=== PATIENT | female | born 1955 | race Caucasian/White ===

== ENCOUNTER 2024-11-29 15:53 | Inpatient (IN) ==
--- NOTE | 2024-11-29 16:28 | Emergency Department Note ---
Impression & Plan Acute confusion, Brain TIA ED Provider Note HISTORY OF PRESENT ILLNESS: Patient is a 69-year-old female presenting with confusion. Patient reports that she "has been really overwhelmed recently." She reports that "I been feeling quite tired." Per clinical real estate manager provides significantly more valuable history at bedside. Reports that the patient was on a visit in the field with a client. Patient is a nurse for [employer] and reportedly kept calling the office every 5 to 10 minutes asking if she was clocked in for her shift. Clinical real estate manager reports that by the seventh time they started asking her questions and the patient was able to answer them appropriately. The clinical real estate manager and another nurse went out to visit the patient at her clients house because the client had called and expressed concern about the patient's confusion. Upon arrival, they report the patient required significant coaxing to do the basics of her job which is very abnormal for her. She was unable to answer any orientation questions appropriately. They report that she was her normal self yesterday. They report that she was amnestic to the events that occurred to the client throughout the day, and clinical real estate manager reports that they were significant events. Patient denies any recent changes to medications. She reports that she has not fallen or hit her head. Denies chiropractic manipulation of her neck. Denies any chest pain or shortness of breath. Denies any recent fevers or chills. Denies any dysuria or hematuria. ROS: as above PHYSICAL EXAM: Constitutional: Patient appears in no acute distress. HENT: Head: Normocephalic and atraumatic. Eyes: EOMI, PERRL Mouth/Throat: Mucous membranes moist. Neck: Trachea midline. Neck supple. Cardiovascular: Tachycardic with regular rhythm. No murmurs, rubs or gallops. Intact distal pulses. Pulmonary/Chest: No respiratory distress. Breath sounds clear and equal bilaterally. No wheezes or rales. Abdominal: Abdomen soft, no tenderness, rebound or guarding. Musculoskeletal: No edema, tenderness or deformity noted. Skin: Warm and dry. No rash, erythema, pallor or cyanosis Psychiatric: Appropriate mood and affect for situation. Neurological: Alert. CN II-XII grossly intact, moving all extremities equally and fully. MDM: - Vitals signs showed hypertension and tachycardia - History obtained via patient and patient's clinical real estate manager, given patient's confusion. History as above. - Chronic conditions affecting care: None - Differential diagnoses include, but are not limited to: UTI; pneumonia; viral syndrome; ACS; TIA; CVA; intracranial hemorrhage - Order placed for continuous cardiac monitoring. At this time, monitor showed rate of 77 bpm with normal sinus rhythm, per my interpretation. - External medical records reviewed. - EKG image interpreted by myself showed normal sinus rhythm. Rate 100 bpm. QT 346. No acute ischemic changes. - Laboratory workup interpreted by myself showed normal WBC; normal PT/INR; stable electrolytes; normal TSH; elevated troponin (28); negative alcohol - CXR image reviewed by myself negative for pneumonia, per my interpretation - UA negative for infection - UDS negative - CT head negative for acute intracranial pathology - CTA head/neck negative for acute pathology - Viral respiratory panel negative. - Repeat troponin slightly downtrending but still elevated at 24 - Patient is alert and oriented on assessment. Unclear etiology for her symptoms at this time. However, concern for potential TIA as a source for her symptoms. Will admit for further workup. - Discussion was had with clinical case manager about patient's case and need for admission - Hospitalist consulted for admission - Patient admitted to [facility]ist service for further evaluation and management. ASSESSMENT AND PLAN: Diagnosis: Confusion; brain TIA Plan: Admit Past Med/Surg History Problem List (Updated 11/29/24 @ 21:52 by Sameera Acevedo MD) Brain TIA (Acute) Acute confusion (Acute) Confusion Hand laceration (Acute) Hand laceration (Acute) Right otitis externa (Acute) Social History Smoking Status: Never smoker Tobacco Cessation Education Requested by Patient: No Hx Alcohol Use: No Hx Substance Use: No Preferred Language: [place] Communication Ability: Effective Liquid Flavor Compounder Required: No Beliefs That Will Affect Care: None Current Living Situation: Family Current Living Situation Comment: Lives w/ daughter Other Information That Helps Us Care for You: No Feels Safe at Home: Yes Safety Concerns: Feels Safe At This Time Assistive Devices: CPAP Assistive Devices Comment: Wears CPAP HS Allergies Allergies Allergy/AdvReac Type Severity Reaction Status Date / Time Penicillins Allergy Mild Unknown Unverified 11/29/24 20:27 cat dander Allergy Hives Unverified 11/29/24 20:27 Home Meds Home Medications Medication Instructions Recorded Confirmed No Known Home Medications 11/29/24 11/29/24 Results & Data (ED) Vital Signs Vital Signs - 24 hr 11/29/24 15:57 11/29/24 16:29 11/29/24 17:54 Temperature 36.8 C Temperature Source Temporal Artery Scan Pulse Rate - Lying Pulse Rate - Sitting Pulse Rate - Standing Pulse Rate 114 H Pulse Rate [Apical] 84 Pulse Rate [Exercises] Pulse Rate from SpO2 Sensor Respiratory Rate 18 19 Respiratory Rate [Exercises] Respiratory Effort / Characteristics Non-Labored Non-Labored Spontaneous Respiratory Depth Normal Normal Respiratory Pattern Regular Blood Pressure - Lying Blood Pressure - Sitting Blood Pressure- Standing Blood Pressure 153/81 H Blood Pressure [Right Arm] 135/73 Blood Pressure Mean 105 Blood Pressure Mean [Right Arm] 93 Pulse Oximetry 97 97 97 Pulse Oximetry [Exercises] Oxygen Delivery Method Room Air Room Air Room Air Sepsis Recent Fever Within 48 Hours No Sepsis New/Unexplained Change in Mental Status No Sepsis Action Taken by Nursing No Action Required 11/29/24 18:48 11/29/24 18:52 11/29/24 18:52 Temperature Temperature Source Pulse Rate - Lying Pulse Rate - Sitting Pulse Rate - Standing Pulse Rate Pulse Rate [Apical] Pulse Rate [Exercises] 89 Pulse Rate from SpO2 Sensor Respiratory Rate Respiratory Rate [Exercises] 19 Respiratory Effort / Characteristics Respiratory Depth Respiratory Pattern Blood Pressure - Lying Blood Pressure - Sitting Blood Pressure- Standing Blood Pressure 126/74 126/74 Blood Pressure [Right Arm] Blood Pressure Mean 105 105 Blood Pressure Mean [Right Arm] Pulse Oximetry Pulse Oximetry [Exercises] 97 Oxygen Delivery Method Room Air Sepsis Recent Fever Within 48 Hours Sepsis New/Unexplained Change in Mental Status Sepsis Action Taken by Nursing 11/29/24 18:52 11/29/24 18:52 11/29/24 18:53 Temperature Temperature Source Pulse Rate - Lying 70 Pulse Rate - Sitting 77 Pulse Rate - Standing 77 Pulse Rate Pulse Rate [Apical] Pulse Rate [Exercises] Pulse Rate from SpO2 Sensor Respiratory Rate Respiratory Rate [Exercises] Respiratory Effort / Characteristics Respiratory Depth Respiratory Pattern Blood Pressure - Lying 114/64 Blood Pressure - Sitting 121/67 Blood Pressure- Standing 126/74 Blood Pressure 126/74 126/74 Blood Pressure [Right Arm] Blood Pressure Mean 105 105 Blood Pressure Mean [Right Arm] Pulse Oximetry Pulse Oximetry [Exercises] Oxygen Delivery Method Sepsis Recent Fever Within 48 Hours Sepsis New/Unexplained Change in Mental Status Sepsis Action Taken by Nursing 11/29/24 18:54 11/29/24 18:58 11/29/24 19:00 Temperature Temperature Source Pulse Rate - Lying Pulse Rate - Sitting Pulse Rate - Standing Pulse Rate 87 85 86 Pulse Rate [Apical] Pulse Rate [Exercises] Pulse Rate from SpO2 Sensor 88 86 Respiratory Rate 15 13 Respiratory Rate [Exercises] Respiratory Effort / Characteristics Respiratory Depth Respiratory Pattern Blood Pressure - Lying Blood Pressure - Sitting Blood Pressure- Standing Blood Pressure Blood Pressure [Right Arm] Blood Pressure Mean Blood Pressure Mean [Right Arm] Pulse Oximetry 97 98 Pulse Oximetry [Exercises] Oxygen Delivery Method Sepsis Recent Fever Within 48 Hours Sepsis New/Unexplained Change in Mental Status Sepsis Action Taken by Nursing 11/29/24 19:00 11/29/24 19:00 11/29/24 19:12 Temperature Temperature Source Pulse Rate - Lying Pulse Rate - Sitting Pulse Rate - Standing Pulse Rate 83 Pulse Rate [Apical] Pulse Rate [Exercises] Pulse Rate from SpO2 Sensor 85 Respiratory Rate 17 Respiratory Rate [Exercises] Respiratory Effort / Characteristics Respiratory Depth Respiratory Pattern Blood Pressure - Lying Blood Pressure - Sitting Blood Pressure- Standing Blood Pressure 122/71 122/71 Blood Pressure [Right Arm] Blood Pressure Mean 80 80 Blood Pressure Mean [Right Arm] Pulse Oximetry 98 Pulse Oximetry [Exercises] Oxygen Delivery Method Sepsis Recent Fever Within 48 Hours Sepsis New/Unexplained Change in Mental Status Sepsis Action Taken by Nursing 11/29/24 19:21 11/29/24 19:30 11/29/24 20:00 Temperature Temperature Source Pulse Rate - Lying Pulse Rate - Sitting Pulse Rate - Standing Pulse Rate 87 81 Pulse Rate [Apical] Pulse Rate [Exercises] Pulse Rate from SpO2 Sensor 85 81 Respiratory Rate 17 14 Respiratory Rate [Exercises] Respiratory Effort / Characteristics Respiratory Depth Respiratory Pattern Blood Pressure - Lying Blood Pressure - Sitting Blood Pressure- Standing Blood Pressure 126/77 Blood Pressure [Right Arm] Blood Pressure Mean 88 Blood Pressure Mean [Right Arm] Pulse Oximetry 98 97 Pulse Oximetry [Exercises] Oxygen Delivery Method Sepsis Recent Fever Within 48 Hours Sepsis New/Unexplained Change in Mental Status Sepsis Action Taken by Nursing 11/29/24 20:15 11/29/24 20:33 11/29/24 20:45 Temperature Temperature Source Pulse Rate - Lying Pulse Rate - Sitting Pulse Rate - Standing Pulse Rate 77 78 89 Pulse Rate [Apical] Pulse Rate [Exercises] Pulse Rate from SpO2 Sensor 83 79 89 Respiratory Rate 20 17 23 Respiratory Rate [Exercises] Respiratory Effort / Characteristics Respiratory Depth Respiratory Pattern Blood Pressure - Lying Blood Pressure - Sitting Blood Pressure- Standing Blood Pressure Blood Pressure [Right Arm] Blood Pressure Mean Blood Pressure Mean [Right Arm] Pulse Oximetry 97 98 97 Pulse Oximetry [Exercises] Oxygen Delivery Method Sepsis Recent Fever Within 48 Hours Sepsis New/Unexplained Change in Mental Status Sepsis Action Taken by Nursing 11/29/24 21:00 11/29/24 21:00 11/29/24 21:00 Temperature Temperature Source Pulse Rate - Lying Pulse Rate - Sitting Pulse Rate - Standing Pulse Rate 79 Pulse Rate [Apical] Pulse Rate [Exercises] Pulse Rate from SpO2 Sensor 80 Respiratory Rate 14 Respiratory Rate [Exercises] Respiratory Effort / Characteristics Respiratory Depth Respiratory Pattern Blood Pressure - Lying Blood Pressure - Sitting Blood Pressure- Standing Blood Pressure 126/62 126/62 Blood Pressure [Right Arm] Blood Pressure Mean 85 85 Blood Pressure Mean [Right Arm] Pulse Oximetry 97 Pulse Oximetry [Exercises] Oxygen Delivery Method Sepsis Recent Fever Within 48 Hours Sepsis New/Unexplained Change in Mental Status Sepsis Action Taken by Nursing 11/29/24 21:00 Temperature Temperature Source Pulse Rate - Lying Pulse Rate - Sitting Pulse Rate - Standing Pulse Rate Pulse Rate [Apical] Pulse Rate [Exercises] Pulse Rate from SpO2 Sensor Respiratory Rate Respiratory Rate [Exercises] Respiratory Effort / Characteristics Respiratory Depth Respiratory Pattern Blood Pressure - Lying Blood Pressure - Sitting Blood Pressure- Standing Blood Pressure 126/62 Blood Pressure [Right Arm] Blood Pressure Mean 85 Blood Pressure Mean [Right Arm] Pulse Oximetry Pulse Oximetry [Exercises] Oxygen Delivery Method Sepsis Recent Fever Within 48 Hours Sepsis New/Unexplained Change in Mental Status Sepsis Action Taken by Nursing Laboratory Data 11/29/24 16:20 11/29/24 16:20 Lab Results 11/29/24 11/29/24 11/29/24 Range/Units 16:20 16:35 17:31 WBC 7.06 (4.8-10.8) K/ul RBC 4.98 (4.20-5.40) M/uL Hgb 15.5 (12.0-16.0) g/dl Hct 44.4 (37.0-47.0) % MCV 89.2 (80.0-100.0) fL MCH 31.1 (25.0-34.0) pg MCHC 34.9 (32.0-36.0) g/dL RDW Std Deviation 43.3 (36.4-46.3) fL RDW Coeff of Devi 13.2 (11.5-14.5) % Plt Count 230 (130-400) K/uL MPV 10.2 (9.4-12.4) fL Immature Gran % (Auto) 0.3 % Neut % (Auto) 81.9 % Lymph % (Auto) 13.0 % Dawson % (Auto) 4.4 % Eos % (Auto) 0.1 % Baso % (Auto) 0.3 % Neut # (Auto) 5.78 (1.40-6.50) K/uL Lymph # (Auto) 0.92 L (1.20-3.40) K/uL [place] # (Auto) 0.31 (0.11-0.59) K/uL Eos # (Auto) 0.01 (0.00-0.50) K/uL Baso # (Auto) 0.02 (0.00-0.20) K/uL Immature Gran # (Auto) 0.02 (0.01-0.20) K/uL PT 10.7 (9.0-12.0) Seconds INR 1.0 (0.9-1.1) Sodium 140 (136-145) mmol/L Potassium 3.6 (3.5-5.1) mmol/L Chloride 105 (98-107) mmol/L Carbon Dioxide 26 (21-32) mmol/L Anion Gap 9 (3-11) BUN 16 (6-23) mg/dl Creatinine 0.48 L (0.6-1.2) mg/dl Est Cr Clr Drug Dosing Not Reportable eGFR 102.47 BUN/Creatinine Ratio 33.3 H (10-20) Glucose 105 H (70-99(Fasting)) mg/dl Calcium 9.9 (8.6-10.3) mg/dl Magnesium 2.0 (1.7-2.4) mg/dl Total Bilirubin 0.4 (0.2-1.0) mg/dl AST 23 (13-39) U/L ALT 33 (7-52) U/L Alkaline Phosphatase 62 (34-104) U/L Troponin I High Sens 28.0 H (0-14) pg/ml Total Protein 7.6 (6.0-8.3) gm/dl Albumin 4.1 (3.4-5.0) gm/dl Globulin 3.5 (2.5-4.0) gm/dl Albumin/Globulin Ratio 1.2 (0.9-2) TSH 1.609 (0.300-4.500) uIu/ml Urine Color Yellow Urine Appearance Clear (Clear) Urine pH 7.0 (4.5-7.5) Ur Specific [place] 1.007 (1.000-1.030) Urine Protein Negative (Negative) Urine Glucose (UA) Negative (Negative) Urine Ketones 1+ H (Negative) Urine Blood Negative (Negative) Urine Nitrite Negative (Negative) Urine Bilirubin Negative (Negative) Urine Urobilinogen Negative (Negative) Ur Leukocyte Esterase Negative (Negative) Urine Comment Urine Opiates Screen Neg (Neg) Ur Methadone, Qual Neg (Neg) Urine Fentanyl Screen Neg (Neg) Urine Barbiturates Neg (Neg) Ur Phencyclidine (PCP) Neg (Neg) U Amphetamin/Meth Scrn Neg (Neg) MDMA (Ecstasy) Screen Neg (Neg) U Benzodiazepines Scrn Neg (Neg) Ur Cocaine Metabolite Neg (Neg) U Marijuana (THC) Screen Neg (Neg) Ethyl Alcohol mg/dL (<10.0) mg/dl Adenovirus (PCR) Not Detected (NotDetected) B. pertussis DNA (PCR) Not Detected (NotDetected) B.parapertussis DNA PCR Not Detected (NotDetected) C. pneumoniae DNA (PCR) Not Detected (NotDetected) Coronavirus OC43 (PCR) Not Detected (NotDetected) Coronavirus HKU1 (PCR) Not Detected (NotDetected) Coronavirus 229E (PCR) Not Detected (NotDetected) SARS-CoV-2 (PCR) Not Detected (NotDetected) Coronavirus NL63 (PCR) Not Detected (NotDetected) Human Metapneumovir PCR Not Detected (NotDetected) Influenza Type A (PCR) Not Detected (NotDetected) Influenza Type B (PCR) Not Detected (NotDetected) M. pneumoniae (PCR) Not Detected (NotDetected) Parainfluenza 1 (PCR) Not Detected (NotDetected) Parainfluenza 2 (PCR) Not Detected (NotDetected) Parainfluenza 3 (PCR) Not Detected (NotDetected) Parainfluenza 4 (PCR) Not Detected (NotDetected) RSV (PCR) Not Detected (NotDetected) Entero/Rhino (PCR) Not Detected (NotDetected) 11/29/24 Range/Units 17:55 WBC (4.8-10.8) K/ul RBC (4.20-5.40) M/uL Hgb (12.0-16.0) g/dl Hct (37.0-47.0) % MCV (80.0-100.0) fL MCH (25.0-34.0) pg MCHC (32.0-36.0) g/dL RDW Std Deviation (36.4-46.3) fL RDW Coeff of Devi (11.5-14.5) % Plt Count (130-400) K/uL MPV (9.4-12.4) fL Immature Gran % (Auto) % Neut % (Auto) % Lymph % (Auto) % [place] % (Auto) % Eos % (Auto) % Baso % (Auto) % Neut # (Auto) (1.40-6.50) K/uL Lymph # (Auto) (1.20-3.40) K/uL [place] # (Auto) (0.11-0.59) K/uL Eos # (Auto) (0.00-0.50) K/uL Baso # (Auto) (0.00-0.20) K/uL Immature Gran # (Auto) (0.01-0.20) K/uL PT (9.0-12.0) Seconds INR (0.9-1.1) Sodium (136-145) mmol/L Potassium (3.5-5.1) mmol/L Chloride (98-107) mmol/L Carbon Dioxide (21-32) mmol/L Anion Gap (3-11) BUN (6-23) mg/dl Creatinine (0.6-1.2) mg/dl Est Cr Clr Drug Dosing eGFR BUN/Creatinine Ratio (10-20) Glucose (70-99(Fasting)) mg/dl Calcium (8.6-10.3) mg/dl Magnesium (1.7-2.4) mg/dl Total Bilirubin (0.2-1.0) mg/dl AST (13-39) U/L ALT (7-52) U/L Alkaline Phosphatase (34-104) U/L Troponin I High Sens 24.0 H (0-14) pg/ml Total Protein (6.0-8.3) gm/dl Albumin (3.4-5.0) gm/dl Globulin (2.5-4.0) gm/dl Albumin/Globulin Ratio (0.9-2) TSH (0.300-4.500) uIu/ml Urine Color Urine Appearance (Clear) Urine pH (4.5-7.5) Ur Specific [place] (1.000-1.030) Urine Protein (Negative) Urine Glucose (UA) (Negative) Urine Ketones (Negative) Urine Blood (Negative) Urine Nitrite (Negative) Urine Bilirubin (Negative) Urine Urobilinogen (Negative) Ur Leukocyte Esterase (Negative) Urine Comment Urine Opiates Screen (Neg) Ur Methadone, Qual (Neg) Urine Fentanyl Screen (Neg) Urine Barbiturates (Neg) Ur Phencyclidine (PCP) (Neg) U Amphetamin/Meth Scrn (Neg) MDMA (Ecstasy) Screen (Neg) U Benzodiazepines Scrn (Neg) Ur Cocaine Metabolite (Neg) U Marijuana (THC) Screen (Neg) Ethyl Alcohol mg/dL < 10.0 (<10.0) mg/dl Adenovirus (PCR) (NotDetected) B. pertussis DNA (PCR) (NotDetected) B.parapertussis DNA PCR (NotDetected) C. pneumoniae DNA (PCR) (NotDetected) Coronavirus OC43 (PCR) (NotDetected) Coronavirus HKU1 (PCR) (NotDetected) Coronavirus 229E (PCR) (NotDetected) SARS-CoV-2 (PCR) (NotDetected) Coronavirus NL63 (PCR) (NotDetected) Human Metapneumovir PCR (NotDetected) Influenza Type A (PCR) (NotDetected) Influenza Type B (PCR) (NotDetected) M. pneumoniae (PCR) (NotDetected) Parainfluenza 1 (PCR) (NotDetected) Parainfluenza 2 (PCR) (NotDetected) Parainfluenza 3 (PCR) (NotDetected) Parainfluenza 4 (PCR) (NotDetected) RSV (PCR) (NotDetected) Entero/Rhino (PCR) (NotDetected) Administered Medications Lactated Ringer's (Lr) 1,000 mls @ 100 mls/hr IV .Q10H BEATRIZ Stop: 11/30/24 08:31 Last Admin: 11/29/24 23:53 Dose: 100 mls/hr Documented By: dmg Discontinued Medications Aspirin (Aspirin 81 Mg Ectab) 81 mg PO NOW STA Stop: 11/29/24 21:12 Last Admin: 11/29/24 21:49 Dose: 81 mg Documented By: YON Gadobutrol (Gadobutrol 65ml Vial) 8 ml IV ONCE ONE Stop: 11/29/24 23:46 Last Admin: 11/29/24 23:45 Dose: 8 ml Documented By: JARON Thiamine HCl 100 mg/ Syringe 10 mls @ 2 mls/min IV NOW STA Stop: 11/29/24 21:23 Last Admin: 11/29/24 21:49 Dose: 2 mls/min Documented By: YON Ioversol (Optiray 320 125ml) 115 ml IV ONCE ONE Stop: 11/29/24 17:37 Last Admin: 11/29/24 17:36 Dose: 115 ml Documented By: ARTHUR Imaging Data Radiologist's Impression: Chest X-Ray 11/29/24 16:21 Clinical History: Confusion Technique: A frontal view of the chest was obtained Findings: There are no definite pulmonary infiltrates. The heart size is within normal limits. No pleural effusion or pneumothorax is seen. There is no definite pulmonary nodule. No fracture is noted. There is a suspected right breast implant Impression: No active disease Electronically signed by Imtiaz Norman 11-29-2024 5:[address] 11/29/24 16:21 Exam: CT head/brain without contrast Reason for exam: Loss of memory and disorientation. Previous studies: None FINDINGS: No intracranial mass, hemorrhage or edema is found at this time. No midline shift or extra-axial blood/fluid collection is noted. Fourth ventricle remains in the midline. No acute process of the bony calvarium is seen. Visualized sinuses and mastoids are clear. IMPRESSION: Negative for active intracranial process on unenhanced head CT scan. Electronically signed by Leonardo Valero 11-29-2024 7:40 PM Head CTA 11/29/24 16:21 Exam: CT angiogram head with contrast. Reason for exam: Patient disoriented. Previous studies: None FINDINGS: There is intact and the distal internal carotid arteries bilaterally. No significant stenosis or thrombus is seen. Intact flow is seen about the arteries of the [place] bilaterally. No significant stenosis aneurysm or hemorrhage is seen. Intact flow is seen in the distal vertebral arteries bilaterally to form the basilar. Intact flow seen in the posterior circulation. IMPRESSION: Normal examination. Electronically signed by Leonardo Valero 11-29-2024 7:43 PM Neck CTA 11/29/24 16:21 Exam: CT angiogram neck with contrast. Reason for exam: Patient disorientation. 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 Minor plaquing seen on the without significant stenosis of the great arteries. Both carotid bifurcations are well visualized and show no significant plaque or stenosis at this time. Intact flow is seen in the vertebral arteries bilaterally. The vertebral spleen essentially symmetric in size to form the basilar. No significant vertebral stenosis or occlusion is seen. IMPRESSION: Essentially normal examination. No significant stenosis or occlusion found in the neck. Electronically signed by Leonardo Valero 11-29-2024 7:46 PM Discharge Plan Visit Data Chief Complaint: Confusion Stated Complaint: CONFUSION, LACK OF MEMORY, BASIC EVALUATION ED Provider: Sameera Acevedo Discharge Problem: Acute confusion, Brain TIA Patient Disposition: Admitted As Inpatient Condition: Fair Discharge Instructions Interventions: ED Discharge Assessment Last Done: 11/29/24 21:44
[2024-11-29 16:44] LABS: Hematocrit (blood only) 44.4 % (37.0-47.0); Hemoglobin 15.5 g/dl (12.0-16.0); Immature Granulocytes # (auto) 0.02 K/uL (0.01-0.20); Immature Granulocytes % (auto) 0.3 %; Mean Corpuscular Hemoglobin 31.1 pg (25.0-34.0); Mean Corpuscular Volume 89.2 fL (80.0-100.0); Platelet Count 230 K/uL (130-400); RDW Standard Deviation 43.3 fL (36.4-46.3); Red Blood Count 4.98 M/uL (4.20-5.40); White Blood Count 7.06 K/ul (4.8-10.8)
[2024-11-29 17:01] LABS: Alanine Aminotransferase 33 U/L (7-52); Albumin Globulin Ratio 1.2 (0.9-2); Albumin Level 4.1 gm/dl (3.4-5.0); Alkaline Phosphatase 62 U/L (34-104); Anion Gap 9 (3-11); Bilirubin,Total 0.4 mg/dl (0.2-1.0); Blood Urea Nitrogen 16 mg/dl (6-23); Calcium 9.9 mg/dl (8.6-10.3); Carbon Dioxide 26 mmol/L (21-32); Chloride 105 mmol/L (98-107); Globulin 3.5 gm/dl (2.5-4.0); Glucose 105 mg/dl (70-99(Fasting)); Magnesium 2.0 mg/dl (1.7-2.4); Potassium 3.6 mmol/L (3.5-5.1); Sodium 140 mmol/L (136-145); Total Protein 7.6 gm/dl (6.0-8.3)
--- NOTE | 2024-11-29 17:11 | XRay Report ---
Clinical History: Confusion Technique: A frontal view of the chest was obtained Findings: There are no definite pulmonary infiltrates. The heart size is within normal limits. No pleural effusion or pneumothorax is seen. There is no definite pulmonary nodule. No fracture is noted. There is a suspected right breast implant Impression: No active disease Electronically signed by Imtiaz Nroman 11-29-2024 5:10 PM
[2024-11-29 17:17] LABS: Thyroid Stimulating Hormone 1.609 uIu/ml (0.300-4.500)
[2024-11-29] MEDS: OPTIRAY 320 125ml IV ONE (17:36)
[2024-11-29 17:41] LABS: INR 1.0 (0.9-1.1); Prothrombin Time 10.7 Seconds (9.0-12.0)
[2024-11-29 17:42] LABS: Chlamydia pneumoniae PCR Not Detected (NotDetected); Coronavirus 229E PCR Not Detected (NotDetected); Coronavirus CoV-2 (COVID19)PCR Not Detected (NotDetected); Coronavirus HKU1 PCR Not Detected (NotDetected); Coronavirus NL63 PCR Not Detected (NotDetected); Coronavirus OC43PCR Not Detected (NotDetected); Human Metapneumovirus PCR Not Detected (NotDetected); Parainfluenza Virus 1 PCR Not Detected (NotDetected); Parainfluenza Virus 2 PCR Not Detected (NotDetected); Parainfluenza Virus 3 PCR Not Detected (NotDetected); Parainfluenza Virus 4 PCR Not Detected (NotDetected); Respiratory Syncytial VirusPCR Not Detected (NotDetected); Rhinovirus/Enterovirus PCR Not Detected (NotDetected)
[2024-11-29 17:51] LABS: Appearance Urine Clear (Clear); Glucose Urine UA Negative (Negative)
[2024-11-29 18:23] LABS: Amphetamines+Metham, Urine Neg (Neg); MDMA (Ecstacy), Urine Neg (Neg); Marijuana, Urine Neg (Neg)
--- NOTE | 2024-11-29 19:40 | CT Scan Report ---
Exam: CT head/brain without contrast Reason for exam: Loss of memory and disorientation. Previous studies: None FINDINGS: No intracranial mass, hemorrhage or edema is found at this time. No midline shift or extra-axial blood/fluid collection is noted. Fourth ventricle remains in the midline. No acute process of the bony calvarium is seen. Visualized sinuses and mastoids are clear. IMPRESSION: Negative for active intracranial process on unenhanced head CT scan. Electronically signed by Leonardo Valero 11-29-2024 7:40 PM
--- NOTE | 2024-11-29 19:43 | CT Scan Report ---
Exam: CT angiogram head with contrast. Reason for exam: Patient disoriented. Previous studies: None FINDINGS: There is intact and the distal internal carotid arteries bilaterally. No significant stenosis or thrombus is seen. Intact flow is seen about the arteries of the [place] bilaterally. No significant stenosis aneurysm or hemorrhage is seen. Intact flow is seen in the distal vertebral arteries bilaterally to form the basilar. Intact flow seen in the posterior circulation. IMPRESSION: Normal examination. Electronically signed by Leonardo Valero 11-29-2024 7:43 PM
--- NOTE | 2024-11-29 19:46 | CT Scan Report ---
Exam: CT angiogram neck with contrast. Reason for exam: Patient disorientation. 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 Minor plaquing seen on the without significant stenosis of the great arteries. Both carotid bifurcations are well visualized and show no significant plaque or stenosis at this time. Intact flow is seen in the vertebral arteries bilaterally. The vertebral spleen essentially symmetric in size to form the basilar. No significant vertebral stenosis or occlusion is seen. IMPRESSION: Essentially normal examination. No significant stenosis or occlusion found in the neck. Electronically signed by Leonardo Valero 11-29-2024 7:46 PM
--- NOTE | 2024-11-29 21:26 | History & Physical Report ---
Date of Service November 29, 2024 Assessment & Plan (1) Confusion: Plan: 69year-old female unassigned patient with no significant past medical history comes because of confusion. 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 It seems patient repeatedly calling the office every 5-10 minutes asking if she was clocking on her shift as per the ER. The clinical manager gift and the nurse went out to visit the patient at the clients house as the client called expressing concern about the patient's confusion. It seems the patient required significant coaxing to do the basics of her job which was very abnormal for her as per ER. Because of confusion patient was brought to the hospital. Currently patient is back to her baseline. Patient thinks she was tired and exhausted which caused her confusion today. Daughter is in the room. Patient is current alert and oriented x 3. Able to give her history. Patient seems does not remember exact events. Patient states the episode happened around 3 PM today. Earlier had a mild headache that is gone now. Denies any fevers. Denies any dizziness. No blurred visions or double vision. No earaches. No runny nose or sore throat. No cough. No difficulty swallowing. Denies any chest pain. Denies shortness of breath. No cough. No palpitations. Normal bowel and bladder movements. No rash. Hemodynamics okay. Patient states she does not take any medications except for hormonal creams which she is using for many years. Patient states recently she was playing football and fell and had broken one of the breast implant and there is a plan for surgery for it on January 01. Confusion Currently seems back to baseline CT head, CTA head and neck unremarkable Chest x-ray negative Labs unremarkable except for troponin of 24 UA is unremarkable Drug screen is negative Respiratory BioFire negative Possible dehydration Possible Transient global amnesia Possible TIA Will give a dose of IV thiamine and aspirin Gentle fluids Will do full stroke workup with MRI scan and echo Neurochecks every 2 hours Telemetry Neurology consult in a.m. for further recommendations Mild elevation of troponin intial troponin 28 and repeat 24 and repeat ekg asymptomatic. Ekg no acute findings will follow serial CE and echo. DVT prophylaxis SCDs Disposition Telemetry Full code. History of Present Illness Chief Complaint: Confusion Primary Care Provider: NO PCP 69year-old female unassigned patient with no significant past medical history comes because of confusion. 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 It seems patient repeatedly calling the office every 5-10 minutes asking if she was clocking on her shift as per the ER. The clinical manager gift and the nurse went out to visit the patient at the [facility] as the client called expressing concern about the patient's confusion. It seems the patient required significant coaxing to do the basics of her job which was very abnormal for her as per ER. Because of confusion patient was brought to the hospital. Currently patient is back to her baseline. Patient thinks she was tired and exhausted which caused her confusion today. Daughter is in the room. Patient is current alert and oriented x 3. Able to give her history. Patient seems does not remember exact events. Patient states the episode happened around 3 PM today. Earlier had a mild headache that is gone now. Denies any fevers. Denies any dizziness. No blurred visions or double vision. No earaches. No runny nose or sore throat. No cough. No difficulty swallowing. Denies any chest pain. Denies shortness of breath. No cough. No palpitations. Normal bowel and bladder movements. No rash. Hemodynamics okay. Patient states she d oes not take any medications except for hormonal creams which she is using for many years. Patient states recently she was playing football and fell and had broken one of the breast implant and there is a plan for surgery for it on January 01. Past medical history. As mentioned above Past surgical history. Bilateral breast implants. Social history. Denies any smoking or alcohol use. Family history. Father had TIAs in his 90s. Mother had stroke. Allergies Allergy/AdvReac Type Severity Reaction Status Date / Time Penicillins Allergy Mild Unknown Unverified 11/29/24 20:27 cat dander Allergy Hives Unverified 11/29/24 20:27 Home Medications Medication Instructions Recorded Confirmed Type No Known Home Medications 11/29/24 11/29/24 History Past Med/Surg History Problem List (Updated 11/29/24 @ 21:52 by Sameera Acevedo MD) Brain TIA (Acute) Acute confusion (Acute) Confusion Hand laceration (Acute) Hand laceration (Acute) Right otitis externa (Acute) Social History Smoking Status: Never smoker Preferred Language: Jamaican Feels Safe at Home: Yes Review of Systems Review of Systems: All systems reviewed & are unremarkable except as noted in HPI & below Physical Exam Physical Exam: General- Not in acute distress. Head- atraumatic Eyes- PERRL, EOMI. ENT- oropharynx clear Neck- supple, no JVD, NO carotid bruit Lungs- clear to auscultation no wheezing or crackles. Heart- regular rate and rhythm; no murmur, no gallop. Abdomen- normal bowel sounds, soft, nontender, no distension. Extremities- no pretibial edema, no erythema seen Neuro- alert, oriented x 3; PERRL, EOMI; no facial palsy; no dysarthria; motor 5/5 bilaterally; no pronator drift, co ordination of movements normal, sensations intact, position sense intact. Skin- warm & dry Results & Data Results & Data Vital Signs (Past 12 Hours) Vital Signs Temp Pulse Pulse Resp BP BP Pulse Ox 11/29/24 20:33 78 17 98 11/29/24 20:15 77 20 97 11/29/24 20:00 126/77 11/29/24 19:30 81 14 97 11/29/24 19:21 87 17 98 11/29/24 19:12 83 17 98 11/29/24 19:00 122/71 11/29/24 19:00 122/71 11/29/24 19:00 86 13 98 11/29/24 18:58 85 11/29/24 18:54 87 15 97 11/29/24 18:52 126/74 11/29/24 18:52 126/74 11/29/24 18:52 126/74 11/29/24 18:52 126/74 11/29/24 17:54 84 19 135/73 97 11/29/24 16:29 97 11/29/24 15:57 36.8 C 114 H 18 153/81 H 97 O2 Del Method 11/29/24 20:33 11/29/24 20:15 11/29/24 20:00 11/29/24 19:30 11/29/24 19:21 11/29/24 19:12 11/29/24 19:00 11/29/24 19:00 11/29/24 19:00 11/29/24 18:58 11/29/24 18:54 11/29/24 18:52 11/29/24 18:52 11/29/24 18:52 11/29/24 18:52 11/29/24 17:54 Room Air 11/29/24 16:29 Room Air 11/29/24 15:57 Room Air Diagnostic Findings Laboratory Results WBC 7.06 K/ul (4.8-10.8) 11/29/24 16:20 RBC 4.98 M/uL (4.20-5.40) 11/29/24 16:20 Hgb 15.5 g/dl (12.0-16.0) 11/29/24 16:20 Hct 44.4 % (37.0-47.0) 11/29/24 16:20 MCV 89.2 fL (80.0-100.0) 11/29/24 16:20 MCH 31.1 pg (25.0-34.0) 11/29/24 16:20 MCHC 34.9 g/dL (32.0-36.0) 11/29/24 16:20 RDW Std Deviation 43.3 fL (36.4-46.3) 11/29/24 16:20 RDW Coeff of Devi 13.2 % (11.5-14.5) 11/29/24 16:20 Plt Count 230 K/uL (130-400) 11/29/24 16:20 MPV 10.2 fL (9.4-12.4) 11/29/24 16:20 Immature Gran % (Auto) 0.3 % 11/29/24 16:20 Neut % (Auto) 81.9 % 11/29/24 16:20 Lymph % (Auto) 13.0 % 11/29/24 16:20 [place] % (Auto) 4.4 % 11/29/24 16:20 Eos % (Auto) 0.1 % 11/29/24 16:20 Baso % (Auto) 0.3 % 11/29/24 16:20 Neut # (Auto) 5.78 K/uL (1.40-6.50) 11/29/24 16:20 Lymph # (Auto) 0.92 K/uL (1.20-3.40) L 11/29/24 16:20 [place] # (Auto) 0.31 K/uL (0.11-0.59) 11/29/24 16:20 Eos # (Auto) 0.01 K/uL (0.00-0.50) 11/29/24 16:20 Baso # (Auto) 0.02 K/uL (0.00-0.20) 11/29/24 16:20 Immature Gran # (Auto) 0.02 K/uL (0.01-0.20) 11/29/24 16:20 PT 10.7 Seconds (9.0-12.0) 11/29/24 16:20 INR 1.0 (0.9-1.1) 11/29/24 16:20 Sodium 140 mmol/L (136-145) 11/29/24 16:20 Potassium 3.6 mmol/L (3.5-5.1) 11/29/24 16:20 Chloride 105 mmol/L (98-107) 11/29/24 16:20 Carbon Dioxide 26 mmol/L (21-32) 11/29/24 16:20 Anion Gap 9 (3-11) 11/29/24 16:20 BUN 16 mg/dl (6-23) 11/29/24 16:20 Creatinine 0.48 mg/dl (0.6-1.2) L 11/29/24 16:20 Est Cr Clr Drug Dosing Not Reportable 11/29/24 16:20 eGFR 102.47 11/29/24 16:20 BUN/Creatinine Ratio 33.3 (10-20) H 11/29/24 16:20 Glucose 105 mg/dl (70-99(Fasting)) H 11/29/24 16:20 Calcium 9.9 mg/dl (8.6-10.3) 11/29/24 16:20 Magnesium 2.0 mg/dl (1.7-2.4) 11/29/24 16:20 Total Bilirubin 0.4 mg/dl (0.2-1.0) 11/29/24 16:20 AST 23 U/L (13-39) 11/29/24 16:20 ALT 33 U/L (7-52) 11/29/24 16:20 Alkaline Phosphatase 62 U/L (34-104) 11/29/24 16:20 Troponin I High Sens 24.0 pg/ml (0-14) H 11/29/24 17:55 Total Protein 7.6 gm/dl (6.0-8.3) 11/29/24 16:20 Albumin 4.1 gm/dl (3.4-5.0) 11/29/24 16:20 Globulin 3.5 gm/dl (2.5-4.0) 11/29/24 16:20 Albumin/Globulin Ratio 1.2 (0.9-2) 11/29/24 16:20 TSH 1.609 uIu/ml (0.300-4.500) 11/29/24 16:20 Urine Color Yellow 11/29/24 17:31 Urine Appearance Clear (Clear) 11/29/24 17:31 Urine pH 7.0 (4.5-7.5) 11/29/24 17:31 Ur Specific [place] 1.007 (1.000-1.030) 11/29/24 17:31 Urine Protein Negative (Negative) 11/29/24 17:31 Urine Glucose (UA) Negative (Negative) 11/29/24 17:31 Urine Ketones 1+ (Negative) H 11/29/24 17:31 Urine Blood Negative (Negative) 11/29/24 17:31 Urine Nitrite Negative (Negative) 11/29/24 17:31 Urine Bilirubin Negative (Negative) 11/29/24 17:31 Urine Urobilinogen Negative (Negative) 11/29/24 17:31 Ur Leukocyte Esterase Negative (Negative) 11/29/24 17:31 Urine Comment 11/29/24 17:31 Urine Opiates Screen Neg (Neg) 11/29/24 17:31 Ur Methadone, Qual Neg (Neg) 11/29/24 17:31 Urine Fentanyl Screen Neg (Neg) 11/29/24 17:31 Urine Barbiturates Neg (Neg) 11/29/24 17:31 Ur Phencyclidine (PCP) Neg (Neg) 11/29/24 17:31 U Amphetamin/Meth Scrn Neg (Neg) 11/29/24 17:31 MDMA (Ecstasy) Screen Neg (Neg) 11/29/24 17:31 U Benzodiazepines Scrn Neg (Neg) 11/29/24 17:31 Ur Cocaine Metabolite Neg (Neg) 11/29/24 17:31 U Marijuana (THC) Screen Neg (Neg) 11/29/24 17:31 Ethyl Alcohol mg/dL < 10.0 mg/dl (<10.0) 11/29/24 17:55 Adenovirus (PCR) Not Detected (NotDetected) 11/29/24 16:35 B. pertussis DNA (PCR) Not Detected (NotDetected) 11/29/24 16:35 B.parapertussis DNA PCR Not Detected (NotDetected) 11/29/24 16:35 C. pneumoniae DNA (PCR) Not Detected (NotDetected) 11/29/24 16:35 Coronavirus OC43 (PCR) Not Detected (NotDetected) 11/29/24 16:35 Coronavirus HKU1 (PCR) Not Detected (NotDetected) 11/29/24 16:35 Coronavirus 229E (PCR) Not Detected (NotDetected) 11/29/24 16:35 SARS-CoV-2 (PCR) Not Detected (NotDetected) 11/29/24 16:35 Coronavirus NL63 (PCR) Not Detected (NotDetected) 11/29/24 16:35 Human Metapneumovir PCR Not Detected (NotDetected) 11/29/24 16:35 Influenza Type A (PCR) Not Detected (NotDetected) 11/29/24 16:35 Influenza Type B (PCR) Not Detected (NotDetected) 11/29/24 16:35 M. pneumoniae (PCR) Not Detected (NotDetected) 11/29/24 16:35 Parainfluenza 1 (PCR) Not Detected (NotDetected) 11/29/24 16:35 Parainfluenza 2 (PCR) Not Detected (NotDetected) 11/29/24 16:35 Parainfluenza 3 (PCR) Not Detected (NotDetected) 11/29/24 16:35 Parainfluenza 4 (PCR) Not Detected (NotDetected) 11/29/24 16:35 RSV (PCR) Not Detected (NotDetected) 11/29/24 16:35 Entero/Rhino (PCR) Not Detected (NotDetected) 11/29/24 16:35 Impressions Chest X-Ray 11/29/24 16:21 Clinical History: Confusion Technique: A frontal view of the chest was obtained Findings: There are no definite pulmonary infiltrates. The heart size is within normal limits. No pleural effusion or pneumothorax is seen. There is no definite pulmonary nodule. No fracture is noted. There is a suspected right breast implant Impression: No active disease Electronically signed by Imtiaz Norman 11-29-2024 5:[address] 11/29/24 16:21 Exam: CT head/brain without contrast Reason for exam: Loss of memory and disorientation. Previous studies: None FINDINGS: No intracranial mass, hemorrhage or edema is found at this time. No midline shift or extra-axial blood/fluid collection is noted. Fourth ventricle remains in the midline. No acute process of the bony calvarium is seen. Visualized sinuses and mastoids are clear. IMPRESSION: Negative for active intracranial process on unenhanced head CT scan. Electronically signed by Leonardo Valero 11-29-2024 7:40 PM Head CTA 11/29/24 16:21 Exam: CT angiogram head with contrast. Reason for exam: Patient disoriented. Previous studies: None FINDINGS: There is intact and the distal internal carotid arteries bilaterally. No significant stenosis or thrombus is seen. Intact flow is seen about the arteries of the [place] bilaterally. No significant stenosis aneurysm or hemorrhage is seen. Intact flow is seen in the distal vertebral arteries bilaterally to form the basilar. Intact flow seen in the posterior circulation. IMPRESSION: Normal examination. Electronically signed by Leonardo Valero 11-29-2024 7:43 PM Neck CTA 11/29/24 16:21 Exam: CT angiogram neck with contrast. Reason for exam: Patient disorientation. 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 Minor plaquing seen on the without significant stenosis of the great arteries. Both carotid bifurcations are well visualized and show no significant plaque or stenosis at this time. Intact flow is seen in the vertebral arteries bilaterally. The vertebral spleen essentially symmetric in size to form the basilar. No significant vertebral stenosis or occlusion is seen. IMPRESSION: Essentially normal examination. No significant stenosis or occlusion found in the neck. Electronically signed by Leonardo Valero 11-29-2024 7:46 PM ECG Additional Comments: ECG. Normal sinus rhythm rate of 100. Septal infarct age-indeterminate. QTc 446. Code Status & VTE Plan VTE Prophylaxis Plan VTE Prophylaxis will be ordered: Yes
[2024-11-29] MEDS: ASPIRIN 81 MG ECTAB PO STA (21:49)
[2024-11-29] MEDS: THIAMINE HCL 100 MG in SYRINGE 9 ML IV STA (21:49)
[2024-11-29] MEDS ORDERED: POLYETHYLENE (MIRALAX) 17 GM PACK PO PRN (22:32)
[2024-11-29] MEDS ORDERED: PHARMACIST DISCHARGE MED REC CONSULT PRN (22:32)
[2024-11-29] MEDS ORDERED: NITROGLYCERIN SL 0.4 MG/TAB TAB SL PRN (22:32)
[2024-11-29] MEDS ORDERED: ACETAMINOPHEN 325 MG TAB PO PRN (22:32)
[2024-11-29] MEDS ORDERED: INFLUENZA VACC TS2025-26(65y+)/PF (IIV3) 0.5mL Syr IM ONE (23:13)
[2024-11-29] MEDS: GADOBUTROL 65ML VIAL IV ONE (23:45)
[2024-11-29] MEDS: LACTATED RINGER'S 1,000 ML IV SCH (23:53)
--- NOTE | 2024-11-30 01:18 | Magnetic Resonance Report ---
Exam(s): MRI HEAD W/WO Contrast IV Amt: 8 ml sebastian EXAM: MR Head Without and With Intravenous Contrast CLINICAL HISTORY: Reason for exam: tia/cva. OTHER: Other Notes: confusion earlier today, uneventful injection 8 ml sebastian to existing iv TECHNIQUE: Magnetic resonance images of the head/brain without and with intravenous contrast in multiple planes. CONTRAST: Patient received 8 ml sebastian of IV contrast COMPARISON: Prior head CT from November 29, 2024. FINDINGS: Brain: Mild nonspecific white matter changes. No mass. No hemorrhage. No acute infarct. The flow voids at the base the brain are intact. 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 Subtle ependymal nodularity in the lateral ventricles. No evidence of abnormal enhancement. The dural venous sinuses are patent. Ventricles: Unremarkable. No ventriculomegaly. Bones/joints: Unremarkable. No acute fracture. Sinuses: Ethmoid sinusitis. No acute sinusitis. Mastoid air cells: Unremarkable as visualized. No mastoid effusion. Orbits: Unremarkable as visualized. IMPRESSION: No evidence of acute intracranial pathology. Electronically signed by: Elsa Crenshaw MD 11/30/24 01:17 AM
[2024-11-30 06:38] LABS: Hematocrit (blood only) 42.2 % (37.0-47.0); Hemoglobin 14.2 g/dl (12.0-16.0); Immature Granulocytes # (auto) 0.02 K/uL (0.01-0.20); Immature Granulocytes % (auto) 0.4 %; Mean Corpuscular Hemoglobin 30.3 pg (25.0-34.0); Mean Corpuscular Volume 90.0 fL (80.0-100.0); Platelet Count 216 K/uL (130-400); RDW Standard Deviation 43.8 fL (36.4-46.3); Red Blood Count 4.69 M/uL (4.20-5.40); White Blood Count 5.32 K/ul (4.8-10.8)
[2024-11-30 06:59] LABS: Anion Gap 7.0 (3-11); Blood Urea Nitrogen 10.0 mg/dl (6-23); Calcium 9.3 mg/dl (8.6-10.3); Carbon Dioxide 26.0 mmol/L (21-32); Chloride 107.0 mmol/L (98-107); Cholesterol 155.0 mg/dl (0-200); Creatinine Clr Calc Pharmacy 124.6 ml/min; Glucose 89.0 mg/dl (70-99(Fasting)); HDL Cholesterol 82.0 mg/dl; Magnesium 2.0 mg/dl (1.7-2.4); Potassium 3.9 mmol/L (3.5-5.1); Sodium 140.0 mmol/L (136-145); Triglycerides 33.0 mg/dl (0-150)
[2024-11-30 07:09] LABS: Hemoglobin A1C 5.7 % (4.5-5.6)
[2024-11-30] MEDS: ASPIRIN 81 MG ECTAB PO SCH (08:09)
[2024-11-30 15:36] VITALS: BP 103/67; RESP 18; TEMP 97.5; O2SAT 94
--- NOTE | 2024-11-30 16:27 | Discharge Summary ---
Discharge Summary Date of Service November 30, 2024 Principal Dx & Hospital Course #1 = Principal Diagnosis (1) Confusion: 69year-old female unassigned patient with no significant past medical history presented with a brief episode of mild confusion. Symptoms started around 3PM yesterday and lasted for about an hour. She never lost consciousness. She remained oriented. Her boss noticed she was repeating herself so her boss came to her job site to see her and sent her to the ED. No focal symptoms. no similar symptoms in the past. Patient states she has been very stressed recently and has been working over 60 hours per week. CTH CTA and MRI brain all without acute pathology. TTE normal. Labs essentially normal. No tremors, incontinence or tongue biting to suggest seizure. Today she feels well and wishes to go home. She was evaluated by neurology. Etiology for her mild confusion unclear but unlikely to be stroke/TIA. Suspect TGA. Anxiety likely contributed to this episode. vitals and labs are stable on day of discharge. d/w daughter at [facility]. Notes For Next Care Provider Medication Changes From Visit none Admission HPI Per Admitting Provider 69year-old female unassigned patient with no significant past medical history comes because of confusion. 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 It seems patient repeatedly calling the office every 5-10 minutes asking if she was clocking on her shift as per the ER. The clinical manager insurance and the nurse went out to visit the patient at the [facility] as the client called expressing concern about the patient's confusion. It seems the patient required significant coaxing to do the basics of her job which was very abnormal for her as per ER. Because of confusion patient was brought to the hospital. Currently patient is back to her baseline. Patient thinks she was tired and exhausted which caused her confusion today. Daughter is in the room. Patient is current alert and oriented x 3. Able to give her history. Patient seems does not remember exact events. Patient states the episode happened around 3 PM today. Earlier had a mild headache that is gone now. Denies any fevers. Denies any dizziness. No blurred visions or double vision. No earaches. No runny nose or sore throat. No cough. No difficulty swallowing. Denies any chest pain. Denies shortness of breath. No cough. No palpitations. Normal bowel and bladder movements. No rash. Hemodynamics okay. Patient states she does not take any medications except for hormonal creams which she is using for many years. Patient states recently she was playing football and fell and had broken one of the breast implant and there is a plan for surgery for it on January 01. Past medical history. As mentioned above Past surgical history. Bilateral breast implants. Social history. Denies any smoking or alcohol use. Family history. Father had TIAs in his 90s. Mother had stroke. Discharge Exam Vitals and labs reviewed General: Well appearing, NAD HEENT: EOMI, PERRLA Neck: Supple Cardiac: RRR no rubs gallops or murmurs Lungs: CTA no rhonchi wheezing or rales Abd: S NT ND BS positive : Deffered MSK: Full ROM. No obvious deformities Ext: No Edema cyanosis Skin: Warm, Dry Neuro: AOx3 No focal deficits. Psych: Normal Mood Updated Medication List Medication Instructions Recorded Confirmed Type aspirin 81 mg capsule 81 mg PO DAILY #30 caps 11/30/24 Rx Hospital Stay Data Consultations 11/29/24 20:35 ED Decision to Admit Stat 11/30/24 08:00 Consult Neurology Routine Diagnostic Imagining Performed 11/29/24 16:21 CT head/brain wo con Stat CTA head w con [CT angio head w con] Stat CTA neck with con [CT angio neck with con] Stat 11/29/24 22:32 MR brain wo/w con Urgent Pending Results Patient Have Any Pending Studies at Discharge: No Discharge Instructions Given to Patient (Per Discharging Provider) Please follow up with your PCP in 1-2 weeks. Return to ED immediately should this happen again. Total Time Total Time Spent Total Time Spent (In Minutes): 51
--- NOTE | 2024-11-30 16:50 | Neurology Consultation ---
Date of Consultation November 30, 2024 Assessment & Plan (1) Confusion: Suspect related to transient global amnesia (2) TGA (transient global amnesia): This could be likely related to severe exhaustion, dehydration, hypotension, hypoperfusion, arrhythmias less likely seizures Plan MRI of the brain and CTAs were reviewed with no concerns. Recommend the patient continue on aspirin 81 mg daily. Okay for discharge. The patient can follow-up with outpatient neurology for possible Zio patch and evaluation as the patient is an EEG. Telehealth Consultation Telehealth Information Telehealth Information: I performed this visit using a real-time telehealth connection between my location and the patients originating location ([facility]). After connecting through interactive tele-video, patient was identified by name and date of and/or wristband check.Patient (or authorized healthcare hotel services sales representative) was informed that this was a telemedicine visit and it was being conducted confidentially over secure lines. My office door was closed and no one else was present in the room with me.Patient (or authorized healthcare hotel services sales representative) provided consent to proceed with the visit, expressed an understanding of privacy and security of the telemedicine visit, and gave permission to have a hospital hotel services sales representative in the room in order to assist with the visit and to conduct portions of the visit, as needed. I informed the patient (or authorized healthcare hotel services sales representative) that I reviewed their record and presented the opportunity for them to ask any questions regarding the visit today. The patient agreed to participate. History of Present Illness Reason for Consultation: confusion Requesting Physician: Jamil Kellogg DO Attending Physician: Valdez Negron DO History of Present Illness 69-year-old female patient with no significant PMH who presents to the hospital with an episode of confusion that was noticed at work, the patient was noted to be confused asking the questions repeatedly of calling the office repeatedly, someone came to check on her and found that she was confused about usual activities of daily living. The patient was brought to the hospital. The patient reports being in and out of memory of the event. She felt 100% better after receiving lactated ringer solution. She denies any current focal neurological deficits or history of similar events. She reports that she has been working nonstop for about a month, she does 10- hour shifts, she does not sleep well. Denies any focal neurological deficits, today she thinks that she was back on her baseline Allergies Allergy/AdvReac Type Severity Reaction Status Date / Time Penicillins Allergy Mild Unknown Unverified 11/29/24 20:27 cat dander Allergy Hives Unverified 11/29/24 20:27 Home Medications Medication Instructions Recorded Confirmed Type aspirin 81 mg capsule 81 mg PO DAILY #30 caps 11/30/24 Rx Patient History Social History Smoking Status: Never smoker Tobacco Cessation Education Requested by Patient: No Hx Alcohol Use: No Hx Substance Use: No Preferred Language: Macedonian Communication Ability: Effective Upholsterer Assembly Line Required: No Beliefs That Will Affect Care: None Current Living Situation: Family Current Living Situation Comment: Lives w/ daughter Other Information That Helps Us Care for You: No Feels Safe at Home: Yes Safety Concerns: Feels Safe At This Time Assistive Devices: None Assistive Devices Comment: Wears CPAP HS Review of Systems Constitutional: Patient denies weight loss, fever, chills, and night sweats Eyes: Patient denies change in vision, tearing, pain, and redness ENT: Patient denies pain, bleeding, rhinorrhea, and dysphagia Cardiovascular: Patient denies chest pain, palpitation, dyspnea at rest, and dyspnea with exertion Respiratory: Patient denies shortness of breath, cough, wheezing, and productive cough GI: Patient denies reflux, pain, constipation, and diarrhea Skin: Patient denies rash, dryness, and itching Allergies/Immune System: Patient denies rhinorrhea, seasonal allergies, reaction to current MEDS, and joint swelling Endocrine: Patient denies weight loss, weight gain, temperature intolerance, and excessive thirst Neurological: All negative unless mentioned in the HPI Physical Exam General Constitutional: Appearance normally developed Head and face: normocephalic and atraumatic Eyes: no ptosis, no anisocoria, and no dysconjugate gaze Respiratory: normal effort Cardiovascular: regular rhythm and regular rate Abdomen: non distended Skin: no rashes, lesions, or ulcers noted Psychiatric: normal judgement and insight, normal mood, and normal affect NEUROLOGIC EXAMINATION: Mental Status:alert, oriented to time, place, person, normal recent memory, normal remote memory, normal attention span, normal concentration, normal language and normal fund of knowledge Cranial Nerves: CN 2 - no visual defect on confrontation and pupils round, equal, reactive to light CN 3, 4, 6 - extra-ocular movements intact and no nystagmus CN 5 - facial sensation intact CN 7 - no facial asymmetry CN 8 - intact hearing CN 9, 10 - palate symmetric, normal gag CN 11 - good shoulder shrug CN 12 - tongue midline MOTOR: Strength was at least antigravity throughout, Pronator drift was absent and There were no abnormal movements SENSATION: intact and symmetric to pinprick, light touch, vibration and joint position GAIT: stable, no ataxia and can perform tandem walking COORDINATION: no ataxia with finger to nose testing and heel to chaudhary testing REFLEXES: cannot assess over telemedicine NIH Stroke Scale: 1a. Level of Consciousness: alert = 0 1b. LOC Questions: (month, age): both correct = 0 1c. LOC Commands (open and close eyes, make fist and let go using non-paretic hand): obeys both correctly = 0 2. Best Gaze (eyes open and patient follows examiner's finger or face): normal = 0 3. Visual (visual threat or finger counting in each quadrant): no loss = 0 4. Facial Palsy (show teeth, raise eye brows and squeeze eyes shut, or grimace symmetry in a comatose patient): normal = 0 5a. Motor Arm (extend arm (palms down) to 90 degrees and score drift/movement (10 seconds) - Left: no drift = 0 5b. Motor Arm: (extend arm (palms down) to 90 degrees and score drift/movement (10 seconds) - Right: no drift = 0 6a. Motor Leg (elevate leg 30 degrees and score drift/ movement (5 seconds) - Left: no drift = 0 6b. Motor Leg (elevate leg 30 degrees and score drift/ movement (5 seconds) - Right: no drift = 0 7. Limb Ataxia (finger to nose, heel down chaudhary): absent = 0 8. Sensory (pin prick to face, arm, trunk and leg, compare side to side): normal = 0 9. Best Language: no aphasia = 0 10. Dysarthria (evaluate speech clarity by patient repeating listed words): normal articulation = 0 11. Extinction and Inattention: no neglect = 0 Total: 0 Results & Data Vital Signs (Past 12 Hours) Vital Signs Temp Pulse Pulse Resp BP Pulse Ox O2 Del Method 11/30/24 15:34 36.4 C L 73 18 103/67 94 Room Air 11/30/24 11:33 36.5 C 76 16 121/75 96 Room Air 11/30/24 08:00 36.3 C L 73 16 114/70 97 Room Air Laboratory Results Laboratory Results - last 24 hr 11/29/24 11/29/24 11/29/24 16:20 16:35 17:31 WBC RBC Hgb Hct MCV MCH MCHC RDW Std Deviation RDW Coeff of Devi Plt Count MPV Immature Gran % (Auto) Neut % (Auto) Lymph % (Auto) Upson % (Auto) Eos % (Auto) Baso % (Auto) Neut # (Auto) Lymph # (Auto) Upson # (Auto) Eos # (Auto) Baso # (Auto) Immature Gran # (Auto) PT 10.7 INR 1.0 Sodium 140 Potassium 3.6 Chloride 105 Carbon Dioxide 26 Anion Gap 9 BUN 16 Creatinine 0.48 L Est Cr Clr Drug Dosing Not Reportable eGFR 102.47 BUN/Creatinine Ratio 33.3 H Glucose 105 H Estimat Average Glucose Hemoglobin A1c Calcium 9.9 Magnesium 2.0 Total Bilirubin 0.4 AST 23 ALT 33 Alkaline Phosphatase 62 Troponin I High Sens 28.0 H Total Protein 7.6 Albumin 4.1 Globulin 3.5 Albumin/Globulin Ratio 1.2 Triglycerides Cholesterol LDL Cholesterol, Calc VLDL Cholesterol, Calc HDL Cholesterol Cholesterol/HDL Ratio TSH 1.609 Urine Color Yellow Urine Appearance Clear Urine pH 7.0 Ur Specific Spreckels 1.007 Urine Protein Negative Urine Glucose (UA) Negative Urine Ketones 1+ H Urine Blood Negative Urine Nitrite Negative Urine Bilirubin Negative Urine Urobilinogen Negative Ur Leukocyte Esterase Negative Urine Comment Urine Opiates Screen Neg Ur Methadone, Qual Neg Urine Fentanyl Screen Neg Urine Barbiturates Neg Ur Phencyclidine (PCP) Neg U Amphetamin/Meth Scrn Neg MDMA (Ecstasy) Screen Neg U Benzodiazepines Scrn Neg Ur Cocaine Metabolite Neg U Marijuana (THC) Screen Neg Ethyl Alcohol mg/dL Adenovirus (PCR) Not Detected B. pertussis DNA (PCR) Not Detected B.parapertussis DNA PCR Not Detected C. pneumoniae DNA (PCR) Not Detected Coronavirus OC43 (PCR) Not Detected Coronavirus HKU1 (PCR) Not Detected Coronavirus 229E (PCR) Not Detected SARS-CoV-2 (PCR) Not Detected Coronavirus NL63 (PCR) Not Detected Human Metapneumovir PCR Not Detected Influenza Type A (PCR) Not Detected Influenza Type B (PCR) Not Detected M. pneumoniae (PCR) Not Detected Parainfluenza 1 (PCR) Not Detected Parainfluenza 2 (PCR) Not Detected Parainfluenza 3 (PCR) Not Detected Parainfluenza 4 (PCR) Not Detected RSV (PCR) Not Detected Entero/Rhino (PCR) Not Detected 11/29/24 11/30/24 17:55 05:32 WBC 5.32 RBC 4.69 Hgb 14.2 Hct 42.2 MCV 90.0 MCH 30.3 MCHC 33.6 RDW Std Deviation 43.8 RDW Coeff of Devi 13.4 Plt Count 216 MPV 10.5 Immature Gran % (Auto) 0.4 Neut % (Auto) 60.3 Lymph % (Auto) 27.1 Upson % (Auto) 10.5 Eos % (Auto) 1.1 Baso % (Auto) 0.6 Neut # (Auto) 3.21 Lymph # (Auto) 1.44 Upson # (Auto) 0.56 Eos # (Auto) 0.06 Baso # (Auto) 0.03 Immature Gran # (Auto) 0.02 PT INR Sodium 140 Potassium 3.9 Chloride 107 Carbon Dioxide 26 Anion Gap 7 BUN 10 Creatinine 0.43 L Est Cr Clr Drug Dosing 124.6 eGFR 105.22 BUN/Creatinine Ratio 23.3 H Glucose 89 Estimat Average Glucose 117 Hemoglobin A1c 5.7 H Calcium 9.3 Magnesium 2.0 Total Bilirubin AST ALT Alkaline Phosphatase Troponin I High Sens 24.0 H 8.3 D Total Protein Albumin Globulin Albumin/Globulin Ratio Triglycerides 33 Cholesterol 155 LDL Cholesterol, Calc 66 VLDL Cholesterol, Calc 7 HDL Cholesterol 82 Cholesterol/HDL Ratio 1.9 TSH Urine Color Urine Appearance Urine pH Ur Specific Spreckels Urine Protein Urine Glucose (UA) Urine Ketones Urine Blood Urine Nitrite Urine Bilirubin Urine Urobilinogen Ur Leukocyte Esterase Urine Comment Urine Opiates Screen Ur Methadone, Qual Urine Fentanyl Screen Urine Barbiturates Ur Phencyclidine (PCP) U Amphetamin/Meth Scrn MDMA (Ecstasy) Screen U Benzodiazepines Scrn Ur Cocaine Metabolite U Marijuana (THC) Screen Ethyl Alcohol mg/dL < 10.0 Adenovirus (PCR) B. pertussis DNA (PCR) B.parapertussis DNA PCR C. pneumoniae DNA (PCR) Coronavirus OC43 (PCR) Coronavirus HKU1 (PCR) Coronavirus 229E (PCR) SARS-CoV-2 (PCR) Coronavirus NL63 (PCR) Human Metapneumovir PCR Influenza Type A (PCR) Influenza Type B (PCR) M. pneumoniae (PCR) Parainfluenza 1 (PCR) Parainfluenza 2 (PCR) Parainfluenza 3 (PCR) Parainfluenza 4 (PCR) RSV (PCR) Entero/Rhino (PCR) Diagnostic Findings Echocardiogram shows left ventricular ejection fraction of 60-65% The left ventricular wall motion is normal, the atrium is normal in size Injection of contrast documented. No interatrial shunt. EKG shows normal sinus rhythm. CT scan of the head shows no acute abnormalities. MRI of the brain shows no acute ischemic infarct no obvious chronic changes CTA head and neck showed no significant atherosclerotic disease or large vessel occlusion. Medications Administered Home Medications Medication Instructions Recorded Confirmed Last Taken No Known Home Medications 11/29/24 11/29/24 Unknown Active Medications Generic Name Dose Route Start Last Admin Trade Name Freq PRN Reason Stop Dose Admin Aspirin 81 mg 11/30/24 09:00 11/30/24 08:09 Aspirin 81 Mg Ectab PO 12/30/24 08:59 81 mg QAM BEATRIZ Administration
[2024-11-30] MEDS ORDERED: STROKE PATIENT DISCHARGE STA (17:20)
[2024-11-30 17:27] VITALS: PULSE 76
--- NOTE | 2024-12-02 23:20 | Electrocardiogram Report ---
Test Reason : Blood Pressure : */* mmHG Vent. Rate : 73 BPM Atrial Rate : 73 BPM P-R Int : 176 ms QRS Dur : 72 ms QT Int : 386 ms P-R-T Axes : 44 35 59 degrees QTcB Int : 425 ms Normal sinus rhythm Septal infarct (cited on or before 29-Nov-2024) Abnormal ECG When compared with ECG of 29-Nov-2024 16:14, (unconfirmed) No significant change was found Confirmed by Willis Og ([id number]) on 12/02/2024 11:20:31 PM Referred By: REFERRED SELF Confirmed By: Willis Og
--- NOTE | 2024-12-03 00:23 | Electrocardiogram Report ---
Test Reason : Blood Pressure : */* mmHG Vent. Rate : 100 BPM Atrial Rate : 100 BPM P-R Int : 178 ms QRS Dur : 64 ms QT Int : 346 ms P-R-T Axes : 79 40 71 degrees QTcB Int : 446 ms Normal sinus rhythm Septal infarct , age undetermined Abnormal ECG No previous ECGs available Confirmed by Willis Og ([id number]) on 12/03/2024 12:22:50 AM Referred By: REFERRED SELF Confirmed By: Willis Og
== END 2024-11-30 18:04 | disposition home or self-care (01) | DRG 72 ==
LOC: ED 15:53 → 2S 21:11